=== PATIENT | female | born 1935 | race Caucasian/White ===

== ENCOUNTER 2017-07-26 06:26 | Inpatient (IN) | payer MEDICARE ==
[2017-07-26] VITALS (20 sets, daily range): BP systolic 97–139; BP diastolic 30–98
[~2017-07-26] VITALS: Ht 152.4 cm; Wt 37.6 kg
[~2017-07-26 06:26] MED LIST: CODE60TA PO; DIAZ5TAB4 PO; INDA75CA IH; METO2.5T2 PO; TIOT18CA3 IH; TIZA4CAP PO
--- NOTE | 2017-07-26 06:30 | NUR ---
PT BIB RA FROM HOME. PT C/O SEVERE SOB THIS AM. PT ON CPAP ON ARRIVAL. PT PLACED IN GOWN AND ON FINISHING AREA SUPERVISOR. RT AT BEDSIDE TO PLACE PT ON BIPAP. SETTINGS - IPAP 12/EPAP 5/RATE 16/FIO2 50%. MD AT BEDSIDE FOR EVAL. PT RESP SHALLOW AND TACHYAPNEA. PT SKIN AWARM AND DRY/PT AOX4.
--- NOTE | 2017-07-26 06:40 | NUR ---
LAB AT BEDSIDE PER MD ORDERS.
--- NOTE | 2017-07-26 06:57 | NUR ---
XRAY AT BEDSIDE.
[2017-07-26] MEDS ORDERED: Magnesium 1GM/D5W 100ML PREMIX 200 ML IV ONE (06:58)
[2017-07-26] MEDS ORDERED: FUROSEMIDE 40 MG/4 ML VIAL IV ONE (07:00)
[2017-07-26] MEDS ORDERED: methylPREDNISolone SOD SUCC 125 MG/2ML VIAL IV ONE (07:00)
[2017-07-26] MEDS ORDERED: ALBUTEROL FS 2.5 MG/3 ML VIAL.NEB NEB ONE (07:00)
[2017-07-26] MEDS ORDERED: IPRATROPIUM NEB FS 0.5 MG/2.5 ML AMPUL.NEB NEB ONE ×2 (07:00→07:30)
[2017-07-26] MEDS ORDERED: IPRATROPIUM NEB FS 0.5 MG/2.5 ML AMPUL.NEB ONE ×4 (07:06→07:15)
[2017-07-26] MEDS ORDERED: ALBUTEROL FS 2.5 MG/3 ML VIAL.NEB ONE ×2 (07:06→07:10)
[2017-07-26] MEDS ORDERED: FUROSEMIDE 40 MG/4 ML VIAL ONE (07:08)
[2017-07-26] MEDS ORDERED: methylPREDNISolone SOD SUCC 125 MG/2ML VIAL ONE (07:08)
[2017-07-26] MEDS ORDERED: Magnesium 1GM/D5W 100ML PREMIX 100 ML IV ONE (07:09)
[2017-07-26] MEDS ORDERED: LEVALBUTEROL HCL NEB 1.25 MG/0.5 ML VIAL.NEB NEB STA (07:11)
--- NOTE | 2017-07-26 07:25 | NUR ---
HHN W/ ALBUTEROL AND ATROVENT STARTED INLINE PER MD ORDER. HHN WAS STARTED, PT CLAIMED TO BE ALLERGIC TO ALBUTEROL AND REQUESTED TO STOP HHN TX. MD MADE AWARE. XOPENEX AND ATROVENT ORDERED AND ADMINISTERED IN A NEW NEB. Addendum: 07/26/17 at 0726 by ARIANE SHER RT Amended: Links added.
[2017-07-26 07:29] LABS: BASOPHILS % (AUTO) 0.1 % (0.0-2.0); HEMATOCRIT 44 % (33-45); HEMOGLOBIN 14.1 g/dL (11.5-14.8); LYMPHOCYTES # (AUTO) 0.4 /CMM (0.8-4.8); LYMPHOCYTES % (AUTO) 2.3 % (20.0-44.0); MEAN CORPUSCULAR HEMOGLOBIN 31 PG (26.0-33.0); MEAN CORPUSCULAR HGB CONC 32 g/dl (31.0-36.0); MEAN CORPUSCULAR VOLUME 95 fL (82-100); MONOCYTES % (AUTO) 6.5 % (2.0-12.0); NEUTROPHILS # (AUTO) 14.1 /CMM (1.8-8.9); NEUTROPHILS % (AUTO) 91.1 % (43.0-81.0); PLATELET COUNT (AUTO) 243 /CMM (150-450); RDW COEFFICIENT OF VARIATION 13.3 (11.5-15.0); RED BLOOD CELL COUNT(AUTO) 4.61 MIL/uL (4.0-5.2); WHITE BLOOD COUNT (AUTO) 15.5 K/uL (4.3-11.0)
--- NOTE | 2017-07-26 07:29 | NUR ---
REPORT GIVEN TO CJ RAJPUT FOR KINZA.
--- NOTE | 2017-07-26 07:37 | NUR ---
PT RESTING IN BED COMFORTABLY WITH BIPAP AND BREATHING TX ON. NAD NOTED AT THIS TIME.
[2017-07-26 07:47] LABS: TROPONIN I < 0.017 ng/mL (0.00-0.056)
[2017-07-26 07:50] LABS: INR 1.15 (0.87-1.13)
[2017-07-26 07:51] LABS: ALANINE AMINOTRANSFERASE 22 U/L (12-78); ALBUMIN 3.6 g/dL (3.4-5.0); ALKALINE PHOSPHATASE 111 U/L (46-116); ASPARTATE AMINOTRANSFERASE 37 U/L (15-37); B-TYPE NATRIURETIC PEPTIDE 2892 PG/ML (0-125); BILIRUBIN,DIRECT 0.2 mg/dL (0.0-0.2); BILIRUBIN,TOTAL 0.8 mg/dL (0.2-1.0); CARBON DIOXIDE 33 mmol/L (21-32); CHLORIDE 91 mmol/L (98-107); GLUCOSE 101 mg/dL (74-106); POTASSIUM 4.7 mmol/L (3.5-5.1); SODIUM SERUM 124 mmol/L (136-145); TOTAL PROTEIN, SERUM 7.9 g/dL (6.4-8.2); UREA NITROGEN, BLOOD 12 mg/dL (7-18)
[2017-07-26 07:56] LABS: CALCIUM, SERUM 9.7 mg/dL (8.5-10.1); CREATININE 0.7 mg/dL (0.6-1.3)
--- NOTE | 2017-07-26 08:07 | NUR ---
PAGED DR BRENNER FOR ADMISSION
[2017-07-26 08:12] LABS: ABG BASE EXCESS 1.6 mmol/L; ABG OXYGEN SATURATION 97.6 % (92.0-98.5); ABG PCO2 65.2 mmHg (35.0-45.0); ABG PH 7.281 (7.350-7.450); ABG PO2 109.4 mmHg (75.0-100.0); AaDO2 173.8 mmHg; COHb 1.3 % (0.5-1.5); MetHb 0.5 % (0.0-1.5); O2Hb 95.8 % (94.0-97.0); SITE, ABG Left Radial; VENT MODE, BG BIPAP ST15/5
[2017-07-26] MEDS ORDERED: LEVOFLOXACIN 750 MG /D5W 150ML 150 ML IV ONE (08:26)
[2017-07-26] MEDS ORDERED: LEVOFLOXACIN 750 MG /D5W 150ML PIGGYBACK IV ONE (08:30)
--- NOTE | 2017-07-26 09:00 | NUR ---
ICU/HEAD OF SALES PROMOTION NOTE RECEIVED REPORT FROM ER NURSE REGULO. PT TRANSFERRED TO ROOM 254 VIA GURNEY. PT PLACED ON BIPAP WITH SETTINGS ORDERED BY MD. INCREASED WORK OF BREATHING, TACHYPNEA NOTED. PT SINUS TACK ON TELE. AAOX3, FOLLOWS COMMANDS. HOWEVER, ANXIOUS AND WORRIED. PT ON DIAPER. SKIN INTACT, SOME SACRAL REDNESS AND BILATERAL HEEL REDNESS NOTED. ALL NEEDS WILL BE ATTENDED TO, SAFETY MEASURES TAKEN, BED IN LOW POSITION, SIDE RAILS UP, CALL LIGHT WITHIN REACH.
--- NOTE | 2017-07-26 09:10 | NUR ---
ICU/RN: RIGHT WRIST PIV, NOT WORKING/LEAKING. REMOVED. PT REFUSED NEW PIV INSERTION. LEFT WRIST 18G PATENT AND INTACT, NO S/S OF INFECTION OR INFILTRATION NOTED.
[2017-07-26] MEDS ORDERED: ZOLPIDEM TARTRATE 5 MG TABLET PO PRN (10:00)
[2017-07-26] MEDS ORDERED: ACETAMINOPHEN 325 MG TABLET PO PRN (10:00)
[2017-07-26] MEDS ORDERED: ONDANSETRON HCL/PF 4 MG/2 ML VIAL IVP PRN (10:00)
[2017-07-26] MEDS ORDERED: MAGNESIUM HYDROXIDE 30 ML UDC PO PRN (10:00)
[2017-07-26] MEDS ORDERED: MAG HYDROX/AL HYDROX/SIMETH 30 ML UDC PO PRN (10:00)
[2017-07-26] MEDS ORDERED: Z GUARD REMEDY 2 OZ OINT TP PRN (10:00)
--- NOTE | 2017-07-26 10:30 | NUR ---
ICU/RN: ABG DONE, PT STABLE. PT TAKEN OFF BIPAP AND PLACED ON NASAL CANULA, TOLERATING WELL. NO DISTRESS. WILL CONTINUE TO MONITOR AND ASSESS
[2017-07-26] MEDS: IPRATROPIUM NEB FS 0.5 MG/2.5 ML AMPUL.NEB NEB SCH ×4 (11:00→23:49)
[2017-07-26] MEDS ORDERED: ALBUTEROL FS 2.5 MG/0.5 ML VIAL.NEB NEB SCH ×2 (11:30)
[2017-07-26 11:35] LABS: MAGNESIUM 1.9 mg/dL (1.8-2.4); PHOSPHORUS 3.7 mg/dL (2.5-4.9)
[2017-07-26] MEDS: ENOXAPARIN SODIUM 40 MG/0.4 ML DISP.SYRIN SQ SCH (11:40)
[2017-07-26 11:46] LABS: THYROID STIMULATING HORMONE 2.002 uIU/mL (0.358-3.74)
[2017-07-26] MEDS: LEVALBUTEROL HCL NEB 1.25 MG/0.5 ML VIAL.NEB NEB SCH ×2 (13:30→20:08)
[2017-07-26] MEDS: methylPREDNISolone SOD SUCC 40 MG/ML VIAL IV SCH ×2 (13:55→17:43)
[2017-07-26] MEDS: HYDROCODONE/APAP 5/325MG 1 EACH TABLET PO PRN (17:59)
--- NOTE | 2017-07-26 18:28 | NUR ---
ICU/RN ENDING NOTES,AM REPORT WILL BE ENDORSED TO NIGHT NURSE FOR CONTINUATION OF CARE. ALL NEEDS MET. PT ON NASAL CANULA, NO DISTRESS. SINUS TACKY ON TELE. DAUGHTER ON SON AT BEDSIDE. ALL QUESTIONS ANSWERED. LINENS CHANGED. ACTIVE ROM. WILL CONTINUE CARE. SAFETY MEASURES TAKEN, BED IN LOW POSITION, SIDE RAILS UP.
--- NOTE | 2017-07-26 18:55 | NUR ---
ICU/RN: ORDERS FOR MIDLINE RECEIVED. FUR BLOWING MACHINE OPERATOR AWARE.
--- NOTE | 2017-07-26 20:14 | NUR ---
received pt from day shift, alert, follows commands, on 2L 02 sat well, lungs partially congested, no edema, v/s stable, no pain, pt turned and repositioned.
[2017-07-27] VITALS (25 sets, daily range): BP systolic 89–143; BP diastolic 43–90
--- NOTE | 2017-07-27 00:43 | NUR ---
pt is resting in the bed, sat well, v/s stable, no pain.
[2017-07-27] MEDS: LEVALBUTEROL HCL NEB 1.25 MG/0.5 ML VIAL.NEB NEB SCH ×4 (02:09→19:25)
[2017-07-27] MEDS: IPRATROPIUM NEB FS 0.5 MG/2.5 ML AMPUL.NEB NEB SCH ×6 (03:30→23:36)
[2017-07-27] MEDS: HYDROCODONE/APAP 5/325MG 1 EACH TABLET PO PRN ×5 (04:01→20:21)
--- NOTE | 2017-07-27 04:47 | NUR ---
pt is resting in the bed, no acute distress overnight, ST, v/s stable, no pain, pt cleaned and repositioned.
[2017-07-27 04:55] LABS: HEMATOCRIT 37 % (33-45); HEMOGLOBIN 12.1 g/dL (11.5-14.8); LYMPHOCYTES # (AUTO) 0.5 /CMM (0.8-4.8); LYMPHOCYTES % (AUTO) 2.7 % (20.0-44.0); MEAN CORPUSCULAR HEMOGLOBIN 31 PG (26.0-33.0); MEAN CORPUSCULAR HGB CONC 33 g/dl (31.0-36.0); MEAN CORPUSCULAR VOLUME 95 fL (82-100); MONOCYTES # (AUTO) 0.9 /CMM (0.1-1.30); MONOCYTES % (AUTO) 4.8 % (2.0-12.0); NEUTROPHILS # (AUTO) 16.5 /CMM (1.8-8.9); NEUTROPHILS % (AUTO) 92.5 % (43.0-81.0); PLATELET COUNT (AUTO) 248 /CMM (150-450); RDW COEFFICIENT OF VARIATION 12.9 (11.5-15.0); RED BLOOD CELL COUNT(AUTO) 3.87 MIL/uL (4.0-5.2); WHITE BLOOD COUNT (AUTO) 17.9 K/uL (4.3-11.0)
[2017-07-27 05:16] LABS: ALANINE AMINOTRANSFERASE 18 U/L (12-78); ALBUMIN 2.6 g/dL (3.4-5.0); ALKALINE PHOSPHATASE 84 U/L (46-116); ASPARTATE AMINOTRANSFERASE 25 U/L (15-37); BILIRUBIN,TOTAL 0.4 mg/dL (0.2-1.0); CALCIUM, SERUM 9.2 mg/dL (8.5-10.1); CARBON DIOXIDE 31 mmol/L (21-32); CHLORIDE 93 mmol/L (98-107); CREATININE 0.6 mg/dL (0.6-1.3); GLUCOSE 141 mg/dL (74-106); MAGNESIUM 1.8 mg/dL (1.8-2.4); PHOSPHORUS 2.4 mg/dL (2.5-4.9); POTASSIUM 4.2 mmol/L (3.5-5.1); SODIUM SERUM 129 mmol/L (136-145); TOTAL PROTEIN, SERUM 6.3 g/dL (6.4-8.2); UREA NITROGEN, BLOOD 14 mg/dL (7-18)
[2017-07-27 05:18] LABS: CHOLESTEROL 150 mg/dL (<200); HDL CHOLESTEROL 80 mg/dL (40-60); LDL 55 mg/dL (0-99); TRIGLYCERIDES 65 mg/dL (30-150)
[2017-07-27 05:20] LABS: TROPONIN I < 0.017 ng/mL (0.00-0.056)
[2017-07-27 05:32] LABS: BAND % (MANUAL) 4 % (0.0-5.0); LYMPHOCYTES % (MANUAL) 5 % (16-48); MONOCYTES % (MANUAL) 3 % (0-11.0); NEUTROPHILS % (MANUAL) 88 (42-76)
--- NOTE | 2017-07-27 07:47 | NUR ---
ICU/RN INITIAL NOTES,AM RECEIVED REPORT FROM NIGHT NURSE.PT ALERT, AWAKE, FOLLOWS COMMANDS. PT ON 2L NASAL CANULA, NO ACUTE DISTRESS NOTED AT THIS TIME. PT OFF BIPAP OVERNIGHT, NO EPISODES OF DIFFICULTY BREATHING REPORTED OVER NIGHT. PT SINUS TACHYCARDIA ON TELE. RIGHT UPPER ARM MIDLINE IN PLACE, NO S/S OF INFECTION OR INFILTRATION NOTED. ALL NEEDS WILL BE MET, SAFETY MEASURES TAKEN, BED IN LOW POSITION, SIDE RAILS UP, CALL LIGHT WITHIN REACH.
[2017-07-27] MEDS: ENOXAPARIN SODIUM 40 MG/0.4 ML DISP.SYRIN SQ SCH (08:19)
[2017-07-27] MEDS: LEVOFLOXACIN 750 MG /D5W 150ML 750 MG in PREMIX 1 EA IV SCH (08:19)
[2017-07-27] MEDS: methylPREDNISolone SOD SUCC 40 MG/ML VIAL IV SCH ×3 (08:19→16:45)
[2017-07-27 08:58] LABS: ABG BASE EXCESS 5.7 mmol/L; ABG OXYGEN SATURATION 92.5 % (92.0-98.5); ABG PCO2 44.5 mmHg (35.0-45.0); ABG PH 7.452 (7.350-7.450); ABG PO2 64.3 mmHg (75.0-100.0); AaDO2 82.8 mmHg; COHb 0.5 % (0.5-1.5); MetHb 0.4 % (0.0-1.5); O2Hb 91.7 % (94.0-97.0); SITE, ABG Right Brachial; VENT MODE, BG NASAL CANNULA
[2017-07-27] MEDS ORDERED: FUROSEMIDE 40 MG/4 ML VIAL IV SCH (09:00)
[2017-07-27] MEDS ORDERED: K PHOS NEUTRAL 250 MG TABLET PO ONE (11:10)
--- NOTE | 2017-07-27 17:00 | NUR ---
ICU/RN: REPORT ENDORSED TO RN AT 3W. PT TRANSFERRED TO ROOM 308-1 VIA WHEELCHAIR ACCORDING TO ACLS GUIDELINES. PT ON 2LITERS NASAL CANULA, NO ACUTE DISTRESS NOTED. PT ON TELE, CONTINUES TO BE SINUS TACHY. AAOX3, AMBULATES WITH ASSISTANCE. ALL BELONGINGS SENT WITH PT. ENDORSED REPORT FOR KINZA. PT BATHE, LINENS CHANGED
--- NOTE | 2017-07-27 17:36 | NUR ---
UPPER MARKER OPENING NOTES RECEIVED PT FROM ICU NURSE IN STABLE CONDITION. PER ICU REPOT, PT WAS ADMITTED TO THE ICU FROM HOME WITH CHIEF COMPLAINT OF SOB. SHE WAS DIAGNOSED WITH ACUTE RESPIRATORY FAILURE AND POSSIBLE PNA. PT IS A/O X3. NO SOB OR SIGNS OF DISTRESS NOTED. PT IS ON 2L VIA NC AND SATING WELL @ 97%. SHE IS SINUS TACH ON THE TELE MONITOR WITH PACS, PVCS, AND A CURRENT HR OF 119. VITAL SIGNS STABLE AT THIS TIME. RIGHT UPPER ARM MIDLINE NOTED TO BE INTACT AND PATENT. NO REDNESS OR SIGNS OF INFILTRATION NOTED. PT WAS ORIENTED TO THE ROOM. BELONGINGS VERIFIED BY SENIOR IT SECURITY ANALYST. WILL CONTINUE TO MONITOR
--- NOTE | 2017-07-27 18:33 | NUR ---
BLOWN FILM EXTRUSION OPERATOR CLOSING NOTES PT REMAINS IN STABLE CONDITION SINCE TRANSFER. ALL NEEDS MET AND ANTICIPATED FOR. VITALS REMAIN STABLE. WILL ENDORSE TO NIGHTSHIFT NURSE FOR KINZA
--- NOTE | 2017-07-27 19:30 | NUR ---
PHYSICAL OPTICS TEACHER NOTE: PATIENT RESTING IN BED, NO ACUTE DISTRESS NOTED. BREATHING EVEN AND UNLABORED, NO SOB NOTED. MIDLINE TO MANJINDER IN PLACE. TELE READING SINUS TACH WITH PAC, PVC 110-130. BED LOCKED AND IN LOWEST POSITION, CALL LIGHT IN REACH, WILL CONTINUE TO MONITOR.
--- NOTE | 2017-07-27 20:30 | NUR ---
RELATIONS MANAGER NOTE: PATIENT COMPLAINS OF BACK PAIN 03/09, NORCO 5/325MG ORAL GIVEN PER MD ORDER. WILL CONTINUE TO MONITOR.
[2017-07-28] VITALS: BP 115/60
[2017-07-28] MEDS: HYDROCODONE/APAP 5/325MG 1 EACH TABLET PO PRN ×5 (00:22→21:22)
--- NOTE | 2017-07-28 00:30 | NUR ---
CHEMISTRY FACULTY MEMBER NOTE: PATIENT COMPLAINS OF BACK PAIN 03/09, NORCO 5/325MG ORAL GIVEN PER MD ORDER. WILL CONTINUE TO MONITOR.
[2017-07-28] MEDS: LEVALBUTEROL HCL NEB 1.25 MG/0.5 ML VIAL.NEB NEB SCH ×5 (01:30→19:53)
[2017-07-28] MEDS: IPRATROPIUM NEB FS 0.5 MG/2.5 ML AMPUL.NEB NEB SCH ×7 (03:30→23:03)
[2017-07-28 03:51] VITALS: BP 112/67
--- NOTE | 2017-07-28 06:30 | NUR ---
DRAFTING TEACHER NOTE: PATIENT RESTING IN BED, NO ACUTE DISTRESS NOTED. BREATHING EVEN AND UNLABORED, NO SOB NOTED. MIDLINE TO MANJINDER IN PLACE. TELE READING SINUS TACH WITH PAC, PVC 110-130. BED LOCKED AND IN LOWEST POSITION, CALL LIGHT IN REACH, WILL ENDORSE TO DAY NURSE TO CONTINUE WITH PLAN OF CARE.
[2017-07-28 06:31] VITALS: BP 131/66
--- NOTE | 2017-07-28 07:40 | NUR ---
RN OPENING NOTES RECEIVED PT. IN BED A&OX4 WITH HEAD OF BED UP. BREATHING UNLABORED AND EVENLY ON OXYGEN 2L/MIN VIA NASAL CANNULA, WITHOUT SOB. NO S/S OF ACUTE DISTRESS. IV ACCESS ON RIGHT UPPER ARM MIDLINE. BEDSIDE COMMODE NEARBY. BED IS IN LOWEST AND LOCKED POSITION. 2 SIDE RAILS UP, AND INSTRUCTED PT. TO USE CALL LIGHT FOR ASSISTANCE. ALL NEEDS MET. WILL CONTINUE TO ASSESS AND MONITOR.
[2017-07-28 08:00] VITALS: BP 128/57
[2017-07-28] MEDS: PROSOURCE / PROSTAT (PYXIS) 30 ML UDC PO SCH (08:41)
[2017-07-28] MEDS ORDERED: PROSOURCE / PROSTAT (PYXIS) 30 ML UDC GT SCH (09:00)
[2017-07-28] MEDS: MULTIVITAMINS,THERAGRAN 1 UDTAB TABLET PO SCH (09:00)
[2017-07-28] MEDS: methylPREDNISolone SOD SUCC 40 MG/ML VIAL IV SCH ×3 (09:38→17:00)
[2017-07-28] MEDS: LEVOFLOXACIN 750 MG /D5W 150ML 750 MG in PREMIX 1 EA IV SCH (09:38)
[2017-07-28] MEDS: ENOXAPARIN SODIUM 40 MG/0.4 ML DISP.SYRIN SQ SCH (09:39)
--- NOTE | 2017-07-28 10:23 | NUR ---
DOREEN ABG Addendum: 07/28/17 at 1023 by RUBIO WALLS RT Amended: Links added.
--- NOTE | 2017-07-28 10:30 | NUR ---
RN NOTES PT. AGREED TO HAVE ABG'S DRAWN, NOTIFIED RESPIRATORY THERAPY.
[2017-07-28] MEDS: NYSTATIN (PYXIS) 500,000 UNIT/5 ML ORAL.SUSP PO SCH ×3 (12:55→21:22)
[2017-07-28 16:00] VITALS: BP 133/67
[2017-07-28] MEDS ORDERED: NEUTRA PHOS 1 POWD.PACKET NG ONE (16:30)
[2017-07-28] MEDS: BOOST PLUS FOOD-CHOCLATE 237 ML BOX PO SCH (17:00)
--- NOTE | 2017-07-28 18:20 | NUR ---
RN NOTES RESPIRATORY THERAPIST WAS NOT ABLE TO DRAW ENOUGH BLOOD FIRST TIME FOR ABG'S. PT. DID NOT WANT TO PROCEED WITH LAB DRAW DUE TO PAIN.
--- NOTE | 2017-07-28 19:20 | NUR ---
RN OPEN NOTES RECEIVED PATIENT AWAKE IN BED. A/O X3. NO SIGNS OF DISTRESS OR DISCOMFORT. BREATHING EVEN AND UNLABORED. ON 2LPM O2 VIA NC. HAS MANJINDER MIDLINE, PATENT AND INTACT, NO SIGNS OF REDNESS OR INFILTRATION. BED IN LOW LOCKED POSITION WITH SIDE RAILS X2. CALL LIGHT WITHIN REACH. WILL CONTINUE TO MONITOR.
--- NOTE | 2017-07-28 19:53 | NUR ---
RN CLOSING NOTES PT. IN BED A&OX4 SITTING UP IN CHAIR. BREATHING UNLABORED AND EVENLY ON OXYGEN 2L/MIN VIA NASAL CANNULA, WITHOUT SOB. NO S/S OF ACUTE DISTRESS. IV ACCESS ON RIGHT UPPER ARM MIDLINE PATENT, AND INTACT. BEDSIDE COMMODE, AND WALKER NEARSIDE. BED IS IN LOWEST AND LOCKED POSITION. 2 SIDE RAILS UP, AND INSTRUCTED PT. TO USE CALL LIGHT FOR ASSISTANCE. ALL NEEDS MET. WILL ENDORSE REPORT TO NURSE.
[2017-07-28 20:00] VITALS: BP 127/73
--- NOTE | 2017-07-28 21:22 | NUR ---
RN NOTES ADMINISTERED NORCO 5/325 ORDERED FOR GENERALIZED PAIN 06/09. WILL CONTINUE TO MONITOR.
[2017-07-28] MEDS ORDERED: SENNOSIDES 8.6 MG TABLET PO SCH (22:00)
[2017-07-29] MEDS: HYDROCODONE/APAP 5/325MG 1 EACH TABLET PO PRN ×3 (01:21→09:20)
--- NOTE | 2017-07-29 01:21 | NUR ---
RN NOTES ADMINISTERED NORCO 5/325 ORDERED FOR GENERALIZED PAIN. WILL CONTINUE TO MONITOR.
[2017-07-29] MEDS: LEVALBUTEROL HCL NEB 1.25 MG/0.5 ML VIAL.NEB NEB SCH ×3 (01:30→14:31)
[2017-07-29] MEDS: IPRATROPIUM NEB FS 0.5 MG/2.5 ML AMPUL.NEB NEB SCH ×4 (02:35→14:31)
--- NOTE | 2017-07-29 05:21 | NUR ---
RN NOTES ADMINISTERED NORCO 5/325 ORDERED FOR GENERALIZED PAIN. WILL CONTINUE TO MONITOR.
[2017-07-29 07:02] LABS: CALCIUM, SERUM 8.7 mg/dL (8.5-10.1); CARBON DIOXIDE 34 mmol/L (21-32); CHLORIDE 95 mmol/L (98-107); CREATININE 0.6 mg/dL (0.6-1.3); GLUCOSE 107 mg/dL (74-106); POTASSIUM 4.4 mmol/L (3.5-5.1); SODIUM SERUM 133 mmol/L (136-145); UREA NITROGEN, BLOOD 13 mg/dL (7-18)
--- NOTE | 2017-07-29 07:06 | NUR ---
RN CLOSING NOTES PATIENT AWAKE IN BED. A/O X3. NO SIGNS OF DISTRESS OR DISCOMFORT. BREATHING EVEN AND UNLABORED. ON 2LPM O2 VIA NC. HAS MANJINDER MIDLINE, PATENT AND INTACT, NO SIGNS OF REDNESS OR INFILTRATION. ALL NEEDS MET. NO SIGNIFICANT CHANGES THROUGH THE NIGHT. BED IN LOW LOCKED POSITION WITH SIDE RAILS X2. CALL LIGHT WITHIN REACH. WILL ENDORSE TO AM SHIFT FOR KINZA.
--- NOTE | 2017-07-29 07:30 | NUR ---
RECEIVED PT. THIS AM ALERT,INFORMING RN SHE IS GOING HOME TODAY.DR. MARCOS IN.O2 ON AND SOB WITHOUT O2.OCC. REMOVES.
[2017-07-29 08:00] VITALS: BP 132/82
[2017-07-29] MEDS: PROSOURCE / PROSTAT (PYXIS) 30 ML UDC PO SCH (08:53)
[2017-07-29] MEDS: BOOST PLUS FOOD-CHOCLATE 237 ML BOX PO SCH ×3 (08:53→17:43)
[2017-07-29] MEDS: methylPREDNISolone SOD SUCC 40 MG/ML VIAL IV SCH ×3 (08:53→17:43)
[2017-07-29] MEDS: NYSTATIN (PYXIS) 500,000 UNIT/5 ML ORAL.SUSP PO SCH ×3 (08:53→17:43)
[2017-07-29] MEDS: ENOXAPARIN SODIUM 40 MG/0.4 ML DISP.SYRIN SQ SCH (08:55)
[2017-07-29] MEDS: MULTIVITAMINS,THERAGRAN 1 UDTAB TABLET PO SCH (08:55)
[2017-07-29] MEDS: LEVOFLOXACIN 750 MG /D5W 150ML 750 MG in PREMIX 1 EA IV SCH (08:56)
--- NOTE | 2017-07-29 14:30 | NUR ---
MAY FRANKEL DECK STEWARD IN DC ORDER GIVEN.
--- NOTE | 2017-07-29 15:43 | NUR ---
pt. refusing disch. photos.
[2017-07-29 16:00] VITALS: BP 140/77
--- NOTE | 2017-07-29 18:15 | NUR ---
AMBULANCE HERE.FULL STACK SOFTWARE DEVELOPER GIVEN REPORT.MIDLINE IV OUT. ALL PAPERS SIGNED INCLUDING BELONGING SHEET.RXS GIVEN TO PT.TAKEN VIA AMBULANCE TO HER HOUSE.PT. VERBALIZED COMPLETE UNDERSTANDING OF ALL INSTRUCTIONS.
== END 2017-07-29 18:21 | disposition home health service (06) | DRG 291 ==
LOC: ER 06:27 → ICU 08:26 → TELE 07-27 16:56 → MED 07-28 10:15
PROVIDERS: ADMIT Internal Medicine; ATTEND Internal Medicine
PROC: 05H533Z Insertion of Infusion Device into Right Subclavian Vein, Percutaneous Approach (ICD-10-PCS; principal; 2017-07-26)
PROC: B546ZZA Ultrasonography of Right Subclavian Vein, Guidance (ICD-10-PCS; 2017-07-26)
PROC: 5A09357 Assistance with Respiratory Ventilation, Less than 24 Consecutive Hours, Continuous Positive Airway Pressure (ICD-10-PCS; 2017-07-26)
DX: I11.0 Hypertensive heart disease with heart failure (principal); J96.22 Acute and chronic respiratory failure with hypercapnia; J96.21 Acute and chronic respiratory failure with hypoxia; J15.9 Unspecified bacterial pneumonia; G93.1 Anoxic brain damage, not elsewhere classified; L89.151 Pressure ulcer of sacral region, stage 1; E87.2 Acidosis; Z99.81 Dependence on supplemental oxygen; J44.1 Chronic obstructive pulmonary disease with (acute) exacerbation; L89.621 Pressure ulcer of left heel, stage 1; L89.611 Pressure ulcer of right heel, stage 1; E87.1 Hypo-osmolality and hyponatremia; E86.1 Hypovolemia; D64.9 Anemia, unspecified; I73.9 Peripheral vascular disease, unspecified; I50.33 Acute on chronic diastolic (congestive) heart failure; E78.5 Hyperlipidemia, unspecified; I25.10 Atherosclerotic heart disease of native coronary artery without angina pectoris; K59.00 Constipation, unspecified; K21.9 Gastro-esophageal reflux disease without esophagitis; Z87.81 Personal history of (healed) traumatic fracture; M41.9 Scoliosis, unspecified; M21.40 Flat foot [pes planus] (acquired), unspecified foot; Z90.710 Acquired absence of both cervix and uterus; Z87.891 Personal history of nicotine dependence; I70.0 Atherosclerosis of aorta; F41.9 Anxiety disorder, unspecified; E87.6 Hypokalemia; Z88.0 Allergy status to penicillin; Z88.8 Allergy status to other drugs, medicaments and biological substances; Z79.899 Other long term (current) drug therapy; J98.4 Other disorders of lung; Z96.642 Presence of left artificial hip joint
CPT/HCPCS: 36415; 36600; 71010-TC; 80048-TC; 80053-TC; 80061-TC; 80076-TC; 82306; 82803-TC; 83605-TC; 83735-TC; 83880; 84100-TC; 84439-TC; 84443-TC; 84484-TC; 85025-TC; 85730-TC; 87040-TC; 87081-TC; 93307-TC; 94799-TC; 97116-TC; 97530-TC; 99082-TC; A4216; A4606; J1650; J1940; J1956; J2920; J2930; J3475; J7050; Z7610

== ENCOUNTER 2017-12-06 18:13 | Emergency (ER) | payer MEDICARE ==
[~2017-12-06] VITALS: Ht 152.4 cm; Wt 45.4 kg
[~2017-12-06 18:13] MED LIST changes: -METO2.5T2 PO; -TIZA4CAP PO
--- NOTE | 2017-12-06 18:13 | NUR ---
[id number] FROM WORSENING BILATERAL LEG PITTING EDEMA, STARTED WHEN SHE FELL LAST MONTH. NO SOB OR PAIN NOTED. VSS NAD. A/OX4 ABLE TO MAKE NEEDS KNONW AND AMBULATE. WILL CONTINUE TO MONITOR FOR ANY CHANGES DURIGN THE SHIFT.
[2017-12-06 18:56] LABS: BASOPHILS % (AUTO) 0.4 % (0.0-2.0); EOSINOPHILS % (AUTO) 0.1 % (0.0-6.0); HEMATOCRIT 35 % (33-45); HEMOGLOBIN 11.7 g/dL (11.5-14.8); LYMPHOCYTES % (AUTO) 12.2 % (20.0-44.0); MEAN CORPUSCULAR HGB CONC 33 g/dl (31.0-36.0); MEAN CORPUSCULAR VOLUME 92 fL (82-100); MONOCYTES # (AUTO) 0.6 /CMM (0.1-1.30); NEUTROPHILS # (AUTO) 6.2 /CMM (1.8-8.9); NEUTROPHILS % (AUTO) 79.3 % (43.0-81.0); PLATELET COUNT (AUTO) 236 /CMM (150-450); RDW COEFFICIENT OF VARIATION 15.2 (11.5-15.0); RED BLOOD CELL COUNT(AUTO) 3.83 MIL/uL (4.0-5.2); WHITE BLOOD COUNT (AUTO) 7.8 K/uL (4.3-11.0)
[2017-12-06 19:04] LABS: CALCIUM, SERUM 8.7 mg/dL (8.5-10.1); CARBON DIOXIDE 37 mmol/L (21-32); CHLORIDE 97 mmol/L (98-107); CREATININE 0.6 mg/dL (0.6-1.3); GLUCOSE 139 mg/dL (74-106); POTASSIUM 3.4 mmol/L (3.5-5.1); SODIUM SERUM 135 mmol/L (136-145); UREA NITROGEN, BLOOD 12 mg/dL (7-18)
--- NOTE | 2017-12-06 19:13 | NUR ---
EKG AT BEDSIDE
[2017-12-06 19:17] LABS: ALANINE AMINOTRANSFERASE 25 U/L (12-78); ALBUMIN 3.5 g/dL (3.4-5.0); ALKALINE PHOSPHATASE 112 U/L (46-116); ASPARTATE AMINOTRANSFERASE 42 U/L (15-37); B-TYPE NATRIURETIC PEPTIDE 3233 PG/ML (0-125); BILIRUBIN,DIRECT 0.2 mg/dL (0.0-0.2); BILIRUBIN,TOTAL 0.6 mg/dL (0.2-1.0); TOTAL PROTEIN, SERUM 6.5 g/dL (6.4-8.2)
[2017-12-06 19:23] LABS: APPEARANCE,URINE Cloudy (CLEAR); BILIRUBIN,URINE SMALL (NEGATIVE); BLOOD, URINE Trace-intact Ery/uL (NEGATIVE); COLOR,URINE Dark (YELLOW); KETONES,URINE Trace (NEGATIVE); LEUKOCYTE ESTERASE ,URINE Small (NEGATIVE); NITRITE, URINE Negative (NEGATIVE); PH,URINE 5.5 (5.0-8.0); PROTEIN,URINE 30 mg/dl (NEGATIVE); UGLUCOSE Negative (NEGATIVE); UROBILINOGEN,URINE 0.2 EU/dL (0.2)
[2017-12-06] MEDS ORDERED: IV NS 0.9% 500 ML BAG IV ONE (19:30)
[2017-12-06 19:33] LABS: INR 1.03 (0.87-1.13)
[2017-12-06 19:40] LABS: BACTERIA,URINE Many /HPF (None Seen); SQUAMOUS EPITHELIAL CELL,UR Few /HPF (None Seen)
[2017-12-06 19:41] LABS: WBC,URINE 51-80 /HPF (0-3)
[2017-12-06] MEDS ORDERED: CEFTRIAXONE 1 G in IV D5W 50 ML IV ONE (20:00)
[2017-12-06] MEDS ORDERED: CEFTRIAXONE 1 G VIAL ONE (20:08)
[2017-12-06] MEDS ORDERED: FUROSEMIDE 20 MG/2 ML VIAL ONE (20:42)
--- NOTE | 2017-12-06 20:54 | NUR ---
CALLED [facility] FOR READ
[2017-12-06] MEDS ORDERED: FUROSEMIDE 20 MG/2 ML VIAL IV ONE (21:00)
--- NOTE | 2017-12-06 21:55 | NUR ---
ETA 1.5 HRS FOR TRANSPORT
--- NOTE | 2017-12-06 22:04 | NUR ---
PT COMFORTABLE WITH N/C 02 AT 3L
[2017-12-06 23:11] VITALS: BP 115/83
== END 2017-12-06 23:11 | disposition home or self-care (01) ==
LOC: ER 18:16
DX: N30.00 Acute cystitis without hematuria (principal); R60.0 Localized edema; J44.9 Chronic obstructive pulmonary disease, unspecified; Z90.710 Acquired absence of both cervix and uterus; Z88.8 Allergy status to other drugs, medicaments and biological substances; Z88.0 Allergy status to penicillin
CPT/HCPCS: 36415; 71045-TC; 80048-TC; 80076-TC; 81000-TC; 83880; 84484-TC; 85025-TC; 85730-TC; 87086-TC; 87186-TC; A4606; J0696; J1940; J7030; J7040; J7060; Z7610